=== PATIENT | female | born 1975 | race Caucasian/White ===

== ENCOUNTER 2021-12-06 07:14 | Outpatient (CLI) | payer OTHER, SELFPAY ==
[2021-12-06 10:22] LABS: Chloride* 104 mmol/L (96-114); Sodium* 138 mmol/L (135-149)
[2021-12-06 10:23] LABS: Potassium* 4.2 mmol/L (3.6-5.1)
[2021-12-06 10:25] LABS: Creatinine* 0.7 mg/dL (0.5-1.5); Estimated Glomerular Filt Rate 109 ml/min
[2021-12-06 10:26] LABS: Blood Urea Nitrogen* 15 mg/dL (5-24); Carbon Dioxide* 27 mmol/L (20-32); Glucose* 116 mg/dL (60-115)
[2021-12-06 10:43] LABS: Vitamin D 25 Hydroxy* 26 ng/mL (30-80)
[2021-12-06 11:17] LABS: Vitamin B12* 434 pg/mL (243-894)
== END 2021-12-06 07:15 | disposition home or self-care (01) ==
PROVIDERS: PCP Family Medicine; Visit Provider Family Medicine
DX: R00.2 Palpitations (principal); F43.9 Reaction to severe stress, unspecified; R53.83 Other fatigue; F41.9 Anxiety disorder, unspecified; Z78.9 Other specified health status
CPT/HCPCS: 80048; 82306; 82607; 84443

== ENCOUNTER 2021-12-26 07:59 | Outpatient (CLI) | payer OTHER, SELFPAY ==
--- NOTE | 2021-12-26 08:15 | CRLHL7_ITS ---
For Patients: As a result of the Century Cures Act, medical imaging exams and procedure reports are released immediately into your electronic medical record. You may view this report before your referring provider. If you have questions, please contact your health care provider. BILATERAL SCREENING MAMMOGRAM WITH COMPUTER-AIDED DETECTION TECHNIQUE: CC and MLO views were obtained. These mammographic images have been obtained using full-field digital technique. These mammographic images were interpreted with the benefit of computer-aided detection. COMPARISON FILM: 10/17/20, 06/26/18. FINDINGS: The breasts are heterogeneously dense, which may obscure small masses IMPRESSION: There is no radiographic evidence for malignancy. ASSESSMENT: BI-RADS Category 1: Negative RECOMMENDATION: Routine screening mammogram in 1 year. A lay language report of this examination will be provided to the patient. Mars Billings M.D. Diagnostic Radiologist [email or web address] KIERSTEN/Dictated by: Mars Billings MD @ 12/29/2021 8:14:00 AM (Electronically Signed)
== END 2021-12-26 08:00 | disposition home or self-care (01) ==
LOC: MAMMO 08:01
PROVIDERS: PCP Family Medicine; Visit Provider Family Medicine
DX: Z12.31 Encounter for screening mammogram for malignant neoplasm of breast (principal); R92.2 Inconclusive mammogram
CPT/HCPCS: 77067

== ENCOUNTER 2023-06-12 13:57 | Outpatient (CLI) | payer OTHER, SELFPAY | END 2023-06-12 13:58 | disposition home or self-care (01) | PROVIDERS: PCP Family Medicine; Visit Provider Family Medicine | DX: E78.2 Mixed hyperlipidemia (principal); R53.83 Other fatigue; E66.01 Morbid (severe) obesity due to excess calories; Z68.41 Body mass index [BMI] 40.0-44.9, adult | CPT/HCPCS: 80053; 80061; 82306; 82607; 82728; 84443 ==

== ENCOUNTER 2023-09-24 14:11 | Outpatient (CLI) | payer OTHER, SELFPAY ==
--- OUTSIDE RECORDS SUMMARY | 2023-09-24 14:18 | XMS_ITS | Clinical Summary ---
Author Organization [facility] Address [address] [place] [address] Care Team Providers Care Personal Lines Insurance Advisor Name Role Phone Unavailable Primary Care Provider Unavailabl e Social History Tobacco Use Types Packs/Day Years Used Date Smoking Tobacco: Never Assessed Adolescent Education Answer Date Record ed Getting School Help Needed Not on file 01/11 Sex and Gender Information Value Date Recorded Sex Assigned at Not on file Gender Identity Not on file Sexual Orientation Not on file Plan of Treatment Health Maintenance Due Date Last Done Comments ADVANCE CARE PLANNING 1975 ANNUAL REVIEW OF HM ORDERS 1976 CT COLONOGRAPHY 1975 FIT 1975 FLEX SIG 1975 GLUCOSE 1975 YEARLY PREVENTIVE VISIT 1975 sDNA (Cologuard) 1975 COLONOSCOPY 1986 COLORECTAL CANCER SCREENING 1986 HIV SCREENING 12/17/1991 HEPATITIS C SCREENING 1994 LIPID 2016 MAMMO SCREENING 10/17/2022 10/17/2020, 06/26/2018 COVID-19 Vaccine ( season) 2022 05/03/2020, 04/13/2020 PHQ-2 (once per calendar year) 2023 INFLUENZA VACCINE (Season Ended) 2023 01/27/2020, 01/18/2020, 01/19/2019, Additional history exists DTAP/TDAP/TD IMMUNIZATION (2 - Td or Tdap) 01/09/2024 01/08/2014 HPV TEST 09/02/2028 09/03/2023 PAP 09/02/2028 09/03/2023 HEPATITIS B IMMUNIZATION Completed 015, 02/18/2014, 01/18/2014, Additional history exists HPV IMMUNIZATION Aged Out No longer e ligible based on patient's age to complete this topic IPV IMMUNIZATION Aged Out No longer e ligible based on patient's age to complete this topic MENINGITIS IMMUNIZATION Aged Out No l onger eligible based on patient's age to complete this topic Pneumococcal Vaccine: Pediatrics (0 to 5 Years) and At-Risk Patients (6 to 64 Years) Aged Out No longer eligible based on patient's age to complete this topic RSV MONOCLONAL ANTIBODY Aged Out No l onger eligible based on patient's age to complete this topic Procedures Procedure Name Priority Date/Time Associated Diagnosis Comments SURGICAL PATHOLOGY EXAM Routine 09/19/2023 3:20 PM CDT GYNECOLOGIC CYTOLOGY Routine 09/03/2023 4:20 PM CDT Encounter for screening for malignant neoplasm of cervix SURGICAL PATHOLOGY EXAM Routine 09/03/2023 4:20 PM CDT Excessive and frequent menstruation with regular cycle GYNECOLOGIC CYTOLOGY AND HPV Routine 09/03/2023 4:20 PM CDT Encounter for screening for malignant neoplasm of cervix MA SCREENING BILATERAL W/ JIGAR Routine 10/17/2020 12:21 PM CDT Visit for screening mammogram from Last 3 Months or Most Recently Relevant to Health Maintenance Results * Surgical Pathology Exam (09/19/2023 3:20 PM CDT) Only the most recent of2 resultswithin the time period is included. Case Report Surgical Pathology Report ? Case: [id number] ? Authorizing Provider: ??Rosibel Bdeoya MD ??Collected: ? 09/19/2023 03:20 PM ? Ordering Location: ? [facility] ?Received: ?09/20/2023 08:10 AM ? [facility] ? Pathologist: ? Elizabeth King MD ? Specimen: ?Uterus, Cervix, Bilateral Fallopian Tubes, With right ovary ? 09/23/2023 12:18 PM [facility] Final Diagnosis A. Uterus, cervix, bilateral fallopian tubes and right ovary, hysterectomy, bilateral salpingectomy and right oophorectomy: -Inactive endometrium -Leiomyomata -Unremarkable cervix -Unremarkable fallopian tubes -Right ovary with cortical inclusion cyst and follicle cysts 09/23/2023 12:18 PM [facility] Clinical Information Menorrhagia; Fibroids 09/23/2023 12:18 PM [facility] Gross Description A(). Uterus, Cervix, Bilateral Fallopian Tubes, With right ovary: The specimen is received in formalin, labeled with the patient's name, medical record number and other identifying information designated uterus, cervix, bilateral fallopian tubes and right ovary. It consists of 512.6 g, 20.5 x 11.9 x 10.5 cm aggregate of a morcellated, fragmented and markedly shaggy uterus, cervix with bilateral fallopian tubes and right ovary. The multifocal areas of intact serosa are quiroz-pink smooth. The fragmented, shaggy cervix is pale-quiroz with a well-defined transformation zone. A 0.1 cm possible endometrium is grossly identified overlying a coarsely trabeculated myometrium with multiple (greater than 10) 0.5-5.7 cm quiroz-white whorled nodules (true myometrial thickness is unable to be determined due to the previously disrupted nature of the specimen). The left, 2.3 x 0.5 cm purple-pink, fimbriated fallopian tube is sectioned, displays a stellate lumen. The right, 8.9 x 0.3-0.5 cm purple-pink, fimbriated fallopian tube is attached to a 3.9 x 2.2 x 1.7 cm pale-quiroz, wrinkled ovary. The ovary is sectioned, displays a purple-quiroz, soft cut surface with several, 0.2-0.6 cm smooth lined serous filled cysts. No obvious possible papillary excrescences are grossly identified. Operator Helper sections of the specimen are submitted as follows: P1-P0-hriyvdwwikf radha sections of cervix A2-W7-wzpbbbuexsj radha sections of possible endometrium with quiroz-white whorled nodules S5-L4-ccnohxeeaje radha sections of quiroz-white whorled nodules T62-wwgt fallopian tube, submitted entirely [id number] e sections of right fallopian tube (fimbriated end submitted entirely) Y45-kdivyaovuiuiz e sections of right ovary to include smooth lined cysts (MAJO Early (ASCP) 09/20/2023 12:22 PM 09/23/2023 12:18 PM CDT LABORATORY Microscopic Description Microscopic examination was performed. 09/23/2023 12:18 PM CDT LABORATORY Performing Labs The technical component of this testing was completed at [facility]. Stain controls for all stains resulted within this report have been reviewed and show appropriate reactivity. 09/23/2023 12:18 PM CDT LABORATORY Case Images 09/23/2023 12:18 PM CDT LABORATORY Tissue UTERUS AND FALLOPIAN TUBES, CS / Unknown 09/19/2023 3:20 PM CDT 09/20/2023 8:10 AM CDT [facility] - [facility] [address] floor, [address] [place] [address] [phone] * Gynecologic Cytology (Pap) and HPV (09/03/2023 4:20 PM CDT) Human Papilloma Virus 16 DNA Negative Negative 09/12/2023 2:42 PM CDT [facility] Human Papilloma Virus 18 DNA Negative Negative 09/12/2023 2:42 PM CDT [facility] Human Papilloma Virus Other Negative Negative 09/12/2023 2:42 PM CDT [facility] FINAL DIAGNOSIS This patient's sample is negative for high risk HPV DNA. METHODOLOGY: The Alexa Fariha 4800 system uses automated extraction, simultaneous amplification of HPV (L1 region) and beta-globin, followed by real time detection of fluorescent labeled HPV and beta globin using specific oligonucleotide probes. The test specifically identifies types HPV 16 DNA and HPV 18 DNA while concurrently detecting the rest of the high risk types (31, 33, 35, 39, 45, 51, 52, 56, 58, 59, 66 or 68). COMMENTS: This test is not intended for use as a screening device for woman under age 30 with normal cervical cytology. Results should be correlated with cytologic and histologic findings. Close clinical followup is recommended. 09/12/2023 2:42 PM CDT [facility] Brushing CERVIX UTERI STRUCTURE / Unknown 09/03/2023 4:20 PM CDT 09/04/2023 10:18 AM CDT Rosibel Bedoya MD LAB - BLOOD MONSE CAAL [facility] Organization Address City/State/ZIP Co de Phone Number [facility] [address] [facility], [address] [place] [address], [facility] * Gynecologic Cytology (PAP) (09/03/2023 4:20 PM CDT) Interpretation Negative for Intraepithelial Lesion or Malignancy (NILM) 09/06/2023 11:31 AM CDT [facility] Comment Papanicolaou Test Limitations: Cervical cytology is a screening test with limited sensitivity, and regular screening is critical for cancer prevention. Pap tests are primarily effective for the diagnosis/prevent ion of squamous cell carcinoma, not adenocarcinoma or other cancers. 09/06/2023 11:31 AM CDT [facility] Specimen Adequacy Satisfactory for evaluation, endocervical/mcdowell sformation zone component present 09/06/2023 11:31 AM CDT [facility] Clinical Information none 09/06/2023 11:31 AM CDT [facility] LMP/Menopause Date 08-28-23 09/06/2023 11:31 AM CDT [facility] Previous Abnormal? No 09/06/2023 11:31 AM CDT [facility] Previous Abnormal Diagnosis lps neg/hpv-neg 09/06/2023 11:31 AM CDT [facility] Performing Labs The technical component of this testing was completed at [facility]. Stain controls for all stains resulted within this report have been reviewed and show appropriate reactivity. 09/06/2023 11:31 AM CDT [facility] Brushing CERVIX UTERI STRUCTURE / Unknown 09/03/2023 4:20 PM CDT 09/03/2023 11:35 PM CDT Rosibel [facility] - N[facility] Specialty Lab [address] [facility], [address] [place] [id number] * MA Screen Bilateral w/Jigar (10/17/2020 12:21 PM CDT) Anatomical Region Laterality Modality Breast Bilateral Mammography Impressions 10/17/2020 1:59 PM CDT IMPRESSION: BI-RADS CATEGORY: 1 - ??NEGATIVE. RECOMMENDED FOLLOW-UP: Annual Mammography. The patient will be notified of the results. TUTU RIDLEY MD Narrative 10/17/2020 1:59 PM CDT Examination: Bilateral digital screening mammography with computer aided detection including digital breast tomosynthesis, 10/17/2020 12:21 PM. Comparison: 06/26/2018 History: No current breast concerns. BREAST DENSITY: Heterogeneously dense. COMMENTS: ??No suspicious finding. Procedure Note Tutu Ridley MD - 10/17/2020 Examination: Bilateral digital screening mammography with computer aided detection including digital breast tomosynthesis, 10/17/2020 12:21 PM. Comparison: 06/26/2018 History: No current breast concerns. BREAST DENSITY: Heterogeneously dense. COMMENTS: No suspicious finding. IMPRESSION: BI-RADS CATEGORY: 1 - NEGATIVE. RECOMMENDED FOLLOW-UP: Annual Mammography. The patient will be notified of the results. TUTU RIDLEY MD Jolie Rozina Crowell MD IMG MAMMOGRAPHY ORDERABLES from Last 3 Months or Most Recently Relevant to Health Maintenance
--- OUTSIDE RECORDS SUMMARY | 2023-09-24 14:18 | XMS_ITS | Referral Summary ---
Author Organization [facility] Address [address] [place] [address] Care Team Providers Care Esthetician And Manager Medical Spa Name Role Phone Unavailable Primary Care Provider Unavailabl e Social History Tobacco Use Types Packs/Day Years Used Date Smoking Tobacco: Never Assessed Adolescent Education Answer Date Record ed Getting School Help Needed Not on file 01/11 Sex and Gender Information Value Date Recorded Sex Assigned at Not on file Gender Identity Not on file Sexual Orientation Not on file Plan of Treatment Not on file Procedures Procedure Name Priority Date/Time Associated Diagnosis [...] Case Report Surgical Pathology Report ? Case: [id number] ? Authorizing Provider: ??Rosibel Bedoya MD ??Collected: ? 09/19/2023 03:20 PM ? Ordering Location: ? [facility] ?Received: ?09/20/2023 08:10 AM ? [facility] ? Pathologist: ? Elizabeth King MD ? Specimen: ?Uterus, Cervix, Bilateral Fallopian Tubes, With right ovary ? 09/23/2023 12:18 PM CDT LABORATORY Final Diagnosis A. Uterus, cervix, bilateral fallopian tubes and right ovary, hysterectomy, bilateral salpingectomy and right oophorectomy: -Inactive endometrium -Leiomyomata -Unremarkable cervix -Unremarkable fallopian tubes -Right ovary with cortical inclusion cyst and follicle cysts 09/23/2023 12:18 PM [facility] Clinical Information Menorrhagia; Fibroids 09/23/2023 12:18 PM [facility] Gross Description A(). Uterus, Cervix, [...] obvious possible papillary excrescences are grossly identified. Press Secretary sections of the specimen are submitted as follows: [id number]-krwrnppsubu radha sections of cervix R5-W9-lmqhlebnuyb radha sections of possible endometrium with quiroz-white whorled nodules A7-Q8-pexovtkylxq radha sections of quiroz-white whorled nodules W04-nylc fallopian tube, submitted entirely [id number] e sections of right fallopian tube (fimbriated end submitted entirely) E74-oajgtdeqcpcqo e sections of right ovary to include smooth lined cysts (MAJO Early (ASCP) 09/20/2023 12:22 PM 09/23/2023 12:18 PM [facility] Microscopic Description Microscopic examination was performed. 09/23/2023 12:18 PM [facility] Performing Labs The technical component of this testing was completed at [facility]. Stain controls for all stains resulted within this report have been reviewed and show appropriate reactivity. 09/23/2023 12:18 PM [facility] Case Images 09/23/2023 12:18 PM [facility] Tissue UTERUS AND FALLOPIAN TUBES, CS / Unknown 09/19/2023 3:20 PM CDT 09/20/2023 8:10 AM CDT [facility] - [facility] [address], [address] [place] [address], [facility] [phone] * Gynecologic Cytology (Pap) and HPV (09/03/2023 4:20 PM CDT) Human Papilloma Virus 16 DNA Negative Negative 09/12/2023 2:42 PM CDT [facility] Human Papilloma Virus 18 DNA Negative Negative 09/12/2023 2:42 PM CDT [facility] Human Papilloma Virus Other Negative [...] followup is recommended. 09/12/2023 2:42 PM CDT [facility] Brushing CERVIX UTERI STRUCTURE / Unknown 09/03/2023 4:20 PM CDT 09/04/2023 10:18 AM CDT Rosibel Bedoya MD LAB - BLOOD MONSE CAAL [facility] [address] [facility], [address] [place] [address], [facility] * Gynecologic Cytology (PAP) (09/03/2023 4:20 [...] component of this testing was completed at [facility]. Stain controls for all stains resulted within this report have been reviewed and show appropriate reactivity. 09/06/2023 11:31 AM CDT [facility] Brushing CERVIX UTERI STRUCTURE / Unknown 09/03/2023 4:20 PM CDT 09/03/2023 11:35 PM CDT Rosibel M[facility] Specialty Lab [address] [facility], [address] [place] [phone] * MA Screen Bilateral w/Jigar (10/17/2020 12:21 [...]
--- NOTE | 2023-09-24 14:30 | MR_ITS ---
[address] [address] Phone:?[phone] Fax:?[phone] Referring Physician Information: Bhargavi Stroud M.D. [address] [facility] [address] Phone:?[phone] Fax:?[phone] Patient:Jaquelin Bonner D.O.B:?1975 Sex:?Female Phone:?[phone] [facility] MRN:?[id number] Exam Date:?09/24/2023 EXAM: MRI of the LEFT KNEE, without contrast CLINICAL HISTORY: Left knee pain. Concern for lateral meniscal injury. COMPARISONS: Plain radiographs 06/12/2023. TECHNICAL: MR sequences of the left knee: sagittals: PD, PDFS coronals: PD, STIR axials: PD, T2 FS CONTRAST: None SEDATION: None FINDINGS: Bones: Patchy edema-like signal within the distal femoral diaphyseal bone marrow is most consistent with hematopoietic marrow. 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 There is a 5 x 5 mm area of grade I to II chondromalacia over the inferior portion of the lateral femoral trochlea. Retinacula: The medial and lateral retinacula are intact. Fat pads: The infrapatellar, quadriceps, and prefemoral fat pads are unremarkable. Knee joint: Effusion: Small left knee joint effusion. Popliteal cyst: Small popliteal cyst. Intra-articular bodies: None. Posteromedial corner: The semimembranosus and pes anserine tendons are intact. Medial compartment: Medial meniscus: There is a near full-thickness radial tear through the posterior horn of the medial meniscus best seen on sagittal images 14 and 15 and axial series 4 images 20 and 21. A small focus of reactive tibial bone marrow edema. There is 3 mm of medial meniscal extrusion best seen on coronal series 7 image 18. Cartilage: Intact. Lateral compartment: Lateral meniscus: Intact. Cartilage: Intact. Ligaments: Anterior cruciate ligament: Intact. Posterior cruciate ligament: Intact. Medial collateral ligament: Intact. Posterior oblique ligament: Intact. Fibular collateral ligament: Intact. Posterolateral corner: The distal biceps femoris tendon, iliotibial band, popliteus tendon, popliteus muscle, popliteofibular ligament, and arcuate ligament are intact. Extensor mechanism: Patellar tendon: Intact. Quadriceps tendon: Intact. IMPRESSION: 1. Near full-thickness radial tear through the posterior horn of the medial meniscus with a small focus of adjacent reactive tibial bone marrow edema. 3 mm of medial meniscal extrusion. 2. 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 5 x 5 mm area of grade I to II chondromalacia over the inferior portion of the lateral femoral trochlea. 3. Small left knee joint effusion. Small popliteal cyst. 4. No ligamentous injury or lateral meniscal pathology of the left knee. RCB Electronically signed on 09/24/2023 4:39:00 PM by Timothy Zafar M.D.
== END 2023-09-24 14:12 | disposition home or self-care (01) ==
PROVIDERS: PCP Family Medicine; Visit Provider Family Medicine
DX: M25.562 Pain in left knee (principal); S83.241A Other tear of medial meniscus, current injury, right knee, initial encounter; M22.41 Chondromalacia patellae, right knee; M25.461 Effusion, right knee
CPT/HCPCS: 73721

== ENCOUNTER 2024-08-26 15:57 | Outpatient (CLI) | payer OTHER, SELFPAY | END 2024-08-26 15:58 | disposition home or self-care (01) | PROVIDERS: PCP Family Medicine; Visit Provider Family Medicine | DX: E78.5 Hyperlipidemia, unspecified (principal); I10 Essential (primary) hypertension; R00.2 Palpitations; E55.9 Vitamin D deficiency, unspecified; Z79.899 Other long term (current) drug therapy | CPT/HCPCS: 80053; 80061; 82306; 82607; 84443 ==

== ENCOUNTER 2024-09-02 12:52 | Outpatient (CLI) | payer OTHER, SELFPAY ==
[2024-09-02] MEDS: PERFLUTREN LIPID MICROSPHERES 2 ML VIAL IVP (13:50)
== END 2024-09-02 12:53 | disposition home or self-care (01) ==
LOC: RAD 12:54
PROVIDERS: PCP Family Medicine; Visit Provider Family Medicine
DX: I49.3 Ventricular premature depolarization (principal)
CPT/HCPCS: 93306; Q9957

== ENCOUNTER 2024-09-29 10:38 | Outpatient (CLI) | payer OTHER, SELFPAY | END 2024-09-29 10:39 | disposition home or self-care (01) | LOC: NFLDREF 10:39 | PROVIDERS: PCP Family Medicine; Visit Provider Family Medicine | DX: E78.5 Hyperlipidemia, unspecified (principal); I10 Essential (primary) hypertension; E55.9 Vitamin D deficiency, unspecified | CPT/HCPCS: 80048 ==